=== PATIENT | female | born 1985 | race Caucasian/White ===

== ENCOUNTER 2023-05-22 14:10 | Emergency (ER) | payer MEDICAID ==
[~2023-05-22] VITALS: Ht 165.1 cm; Wt 80.9 kg
[2023-05-22 15:03] VITALS: BP 129/89; PULSE 65; O2SAT 100
--- NOTE | 2023-05-22 16:56 | NUR ---
pt miguel ángel felt a weird spasm in her back last night and has been unable to stand the pain.
[2023-05-22] MEDS ORDERED: ketorolac trometh. 30mg/ml inj. IM ONE (17:20)
[2023-05-22] MEDS ORDERED: orphenadrine citrate 60mg/2ml inj. IM ONE (17:20)
[2023-05-22] MEDS ORDERED: CYCL-1 PO (17:24)
[2023-05-22] MEDS ORDERED: IBUP-1986 PO (17:24)
--- NOTE | 2023-05-22 17:37 | NUR ---
SPICE GRINDER ASSESSMENT REVIEWED BY ADRIAN RN AND APPROVED
[2023-05-22 17:53] VITALS: RESP 18
--- NOTE | 2023-05-22 18:13 | NUR ---
pt treated and seen by SKEIN YARD DRIER elsa sky, provider eval before nurse eval. Pt states no major health issues allergies or prescriptions
[2023-05-22 18:18] VITALS: TEMP 97.8
== END 2023-05-22 18:19 | disposition home or self-care (01) ==
LOC: ER 14:10
DX: S33.5XXA Sprain of ligaments of lumbar spine, initial encounter (principal); X58.XXXA Exposure to other specified factors, initial encounter; Y93.89 Activity, other specified; Y92.89 Other specified places as the place of occurrence of the external cause; Y99.8 Other external cause status
CPT/HCPCS: 96372; 99284; J1885; J2360

== ENCOUNTER 2025-04-12 15:34 | Emergency (ER) | payer MEDICAID ==
[~2025-04-12] VITALS: Ht 165.1 cm; Wt 84.6 kg
[~2025-04-12 15:34] MED LIST: CYCL-1 PO; IBUP-1986 PO
[2025-04-12 15:59] VITALS: TEMP 97.2
--- NOTE | 2025-04-12 19:55 | Physician Documentation ---
History of Present Illness ~ Chief Complaint: Bloody Emesis Stated Complaint: VOMITING BLOOD Time Seen by MD: 19:45 Primary Medical Doctor: Sugey oviedo [facility] Mode of Arrival: POV, Ambulatory HPI Patient presents to the emergency room with nausea and vomiting today. She came in concerned because after she started vomiting for awhile she had some blood in her vomit. No additional bleeding. No black stools. She is not on blood thinners. Patient does have history of reflux that has not taken any medications. Medication Reconciliation Allergies: Coded Allergies: levofloxacin (Verified Allergy, Unknown, RASH, 04/12/25) Scheduled Cyclobenzaprine* (Cyclobenzaprine*), 1 TAB PO TID Ibuprofen (Ibuprofen), 1 TAB PO Q8H Past Medical History Past Medical History: No Pertinent History Review of Systems ROS All review of systems negative except as per HPI Physical Exam Vital Signs: Temperature: 97.2, Source: Temporal, Heart Rate: 63, Respiratory Rate: 16, BP: 134/95, Pulse Oximetry: 99, Weight: 84.600 Oxygen Flow Rate: 0 Physical Exam General: Patient is awake, alert, oriented x4 in no acute distress and well appearing.~ Head: Normocephalic and atraumatic. Eyes: Conjunctival normal. EOMI. PERRL. ENT: Mucous membranes moist. Neck: Supple, trachea is midline. Chest: Clear to auscultation bilaterally without rales, rhonchi, or wheezes. There is no accessory muscle use or retractions. Cardiac: RRR without murmurs, gallops, or rubs. Abd: Soft, nondistended, nontender, with normoactive bowel sounds. No guarding, rebound, or rigidity. Progress Results/Orders Results/Orders Orders - JEFF ESPINOSA MD Urinalysis, Cult If Indicated (04/12/25 19:59) Type And Screen (04/12/25 19:59) Saline Lock (04/12/25 19:59) Completed Orders - JEFF ESPINOSA MD Cbc/Diff (04/12/25 19:59) BMP (04/12/25 19:59) Normal Saline 1000ml (0.9% Sodium Chlori (04/12/25 20:00) Ondansetron Inj. (Zofran 4mg/2ml Vial) (04/12/25 20:00) Famotidine/Pf Iv Inj (Pepcid Iv Inj) (04/12/25 20:00) Pantoprazole 40mg Iv (Protonix 40mg Iv) (04/12/25 20:00) Medications Received in ER Medications (Trade) Dose Ordered Sig/Tyler Route PRN Reason Start Time Stop Time Status Last Admin Dose Admin Sodium Chloride 1,000 ml @ 1,000 mls/hr ONCE ONCE IV 04/12/25 20:00 04/12/25 20:59 DC 04/12/25 20:19 1,000 MLS/HR (Zofran 4mg/2ml vial) 8 mg ONCE ONCE IV 04/12/25 20:00 04/12/25 20:02 DC 04/12/25 20:33 8 MG (Pepcid IV inj) 20 mg ONCE ONCE IV 04/12/25 20:00 04/12/25 20:02 DC 04/12/25 20:33 20 MG (Protonix 40mg IV) 80 mg ONCE ONCE IV 04/12/25 20:00 04/12/25 20:02 DC 04/12/25 20:33 80 MG Vital Signs 04/12/25 04/12/25 04/12/25 15:59 19:18 19:18 Temp 97.2 Pulse 83 63 Resp 16 16 16 B/P (MAP) 135/95 134/95 (108) Pulse Ox 99 99 O2 Flow Rate 0 Laboratory Tests Test 04/12/25 20:58 White Blood Count 7.4 Red Blood Count 4.58 Hemoglobin 14.4 Hematocrit 42.4 Mean Corpuscular Volume 92.7 Mean Corpuscular Hemoglobin 31.5 H Mean Corpuscular Hemoglobin Concent 34.0 Red Cell Distribution Width 13.1 Platelet Count 273 Mean Platelet Volume 7.7 Neutrophils (%) (Auto) 64.0 Lymphocytes (%) (Auto) 27.3 Monocytes (%) (Auto) 6.4 Eosinophils (%) (Auto) 1.3 Basophils (%) (Auto) 1.0 Neutrophils # (Auto) 4.7 Lymphocytes # (Auto) 2.0 Monocytes # (Auto) 0.5 Eosinophils # (Auto) 0.1 Basophils # (Auto) 0.1 CBC Comment Sodium Level 139 Potassium Level 3.5 Chloride Level 105 Carbon Dioxide Level 24.2 Anion Gap 10 Blood Urea Nitrogen 11 Creatinine 0.87 Estimated GFR/1.73 m2 72 BUN/Creatinine Ratio 12.6 Glucose Level 82 Calcium Level 8.3 L Albumin 3.7 Chemistry Comments Medical Decision Making Findings Patient presented to the emergency room with bloody vomit as per HPI. Differentials include but are not limited to upper GI bleed, ulcer, Kath- Wyman, anemia therefore emergent labs ordered. No evidence of anemia or martinez vated BUN suggesting significant upper GI bleed. Given history patient's symptoms consistent with Kath-Wyman tears. No report of any black stools however ER precautions regarding black stools or copious amounts of hematemesis discussed. No abdominal tenderness to palpation he had not feel she requires a CT scan. Departure Disposition: HOME / SELF CARE / HOMELESS Impression: Primary Impression: Kath-Wyman syndrome Condition: Stable Discharge Instructions: Kath-Wyman Syndrome Referrals: NO PRIMARY CARE PROVIDER (PCP) Prescriptions Pantoprazole Sodium (PROTONIX tablet) 40 Mg Tablet.dr 1 TAB PO DAILY for 30 Days, #30 TAB 0 Refills Prov: JEFF ESPINOSA MD 04/12/25 Ondansetron 8mg ODT (Ondansetron Odt) 8 Mg Tab.rapdis 1 TAB PO Q6H for nausea/vomiting for 3 Days, #12 TAB 0 Refills Prov: JEFF ESPINOSA MD 04/12/25 Education Educated: Patient Educated regarding: diagnosis, treatment, need for follow up Signature Scribe Signature: No scribe Attestation: The note accurately reflects work and decisions made by me.Jeff Espinosa MD 04/12/25 21:48 JEFF ESPINOSA MD Apr 12, 2025 19:55
[2025-04-12] MEDS: normal saline 1000ml 1,000 ML IV ONE (20:19)
[2025-04-12] MEDS: ondansetron/PF 4mg/2ml inj IV ONE (20:33)
[2025-04-12] MEDS: famotidine/PF 10 mg/ml inj IV ONE (20:33)
[2025-04-12 21:19] LABS: MEAN PLATELET VOLUME 7.7 FL (7.4-10.4); RED CELL DISTRIBUTION WIDTH 13.1 % (11.5-14.5)
[2025-04-12 21:26] LABS: CREATININE 0.87 MG/DL (0.40-0.90); TOTAL CARBON DIOXIDE 24.2 MMOL/L (24-32); eCRCL 78 ML/MIN; eGFR 72 ML/MIN
[2025-04-12] MEDS ORDERED: ONDA-245 PO (21:47)
[2025-04-12] MEDS ORDERED: PANT-47 PO (21:47)
[2025-04-12 21:56] VITALS: BP 128/80; PULSE 60; RESP 16; O2SAT 99
[2025-04-12 22:13] LABS: LEUKOCYTE ESTERASE ,URINE NEGATIVE (Neg); NITRITES, URINE NEGATIVE (Neg); OCCULT BLOOD,URINE NEGATIVE (Neg)
[2025-04-12 22:14] LABS: UA COLLECTION TYPE NON-SPECIFIED
== END 2025-04-12 21:57 | disposition home or self-care (01) ==
LOC: ER 15:34
DX: K22.6 Gastro-esophageal laceration-hemorrhage syndrome (principal); Z88.1 Allergy status to other antibiotic agents; Z79.899 Other long term (current) drug therapy
CPT/HCPCS: 36415; 80048; 81003; 85025; 86885; 86900; 86901; 96361; 96374; 96375; 99284; J2405; J2470; J3490; J7030